=== PATIENT | female | born 1980 | race Caucasian/White ===

== ENCOUNTER 2017-07-19 14:31 | Emergency (ER) | payer OTHER ==
[~2017-07-19] VITALS: Ht 165.1 cm; Wt 74.8 kg
[~2017-07-19 14:31] MED LIST: ACET325 PO; ALBU4 PO; ALBU90OI INH; ALBU90OI6 INH; ALEN10 PO; ALEN70 PO; AMOCLA875 PO; AMOX500 PO; APRI; AZIT250 PO; AZIT500 PO; AZO; BENZ100A PO; BUPR100 PO; BUSP10; BUSP10 PO; Buspirone HCl10 MG PO; CALGLU500 PO; CEPH500 PO; CIPR250 PO; CIPR500 PO; CLON1 PO; CODGUAEL PO; CRUTCH2 MISC; CRUTCH4 USE; CYMBALTA; Cipro500 MG PO; DICL75ER PO; DOXY100 PO; DULO60 PO; ERGO400 PO; ERGO50000 PO; FLUT.05NI; GABA300 PO; HYDACE5 PO; HYDACE5325 PO; HYDR1TAB94 PO; IBUP400 PO; IBUP600 PO; IBUP800 PO; INDO50 PO; Inderal40 MG PO; KETO10 PO; Keflex500 MG PO; L-THYROXINE; LEVSOD100 PO; LEVSOD125 PO; LEVSOD150 PO; LEVSOD25 PO; LISI5 PO; MAGCIT300 PO; METCAR500 PO; METO10 PO; METO25 PO; METR500 PO; NAPR500 PO; NEURONTIN; NITR100CA PO; Naprosyn375 MG PO; Naprosyn500 MG PO; Norco 10-325 T1 EACH PO; Norco 5-325 Ta1 EACH PO; OMEP20ER PO; ONDA8 PO; OXYACE5T PO; PHENA200 PO; POTA20PAC PO; PRED20 PO; PROC10 PO; PROM25 PO; PROP10 PO; Pepcid40 MG PO; Percocet 5-3251 EACH PO; Pyridium100 MG PO; QVAR7.3 G1 IH; RISP1 PO; RISP2 PO; RXHYDACE PO; RXOXYACE PO; SERT25 PO; TRAACE PO; TRAM50 PO; TRAZ100 PO; TRAZ50 PO; Ultram50 MG PO; VENL75ER PO; VIBRID; VIBRID PO; VIIBRYD40 MG PO; VYBRID PO; Ventolin/Prove6.7 GM INH; Zithromax250 MG PO; [UNRECOGNIZED DRUG - OTHER]
[2017-07-19] MEDS ORDERED: ALBU90OI61 INH (14:43)
[2017-07-19] MEDS ORDERED: STEROID INHALER INH (14:43)
[2017-07-19] MEDS ORDERED: [UNRECOGNIZED DRUG - REMARK] PO (14:43)
[2017-07-19] MEDS ORDERED: Norco 5-325 Ta1 EACH PO (15:48)
== END 2017-07-19 15:58 | disposition home or self-care (01) ==
LOC: ER 14:31
DX: S60.221A Contusion of right hand, initial encounter (principal); I10 Essential (primary) hypertension; J44.9 Chronic obstructive pulmonary disease, unspecified; F32.9 Major depressive disorder, single episode, unspecified; F41.9 Anxiety disorder, unspecified; F17.200 Nicotine dependence, unspecified, uncomplicated; Z88.5 Allergy status to narcotic agent; Z88.2 Allergy status to sulfonamides; Z88.8 Allergy status to other drugs, medicaments and biological substances; Z79.899 Other long term (current) drug therapy; W22.8XXA Striking against or struck by other objects, initial encounter
CPT/HCPCS: 29125; 73130; 99283; L3917

== ENCOUNTER 2017-08-06 12:00 | Emergency (ER) | payer OTHER ==
[~2017-08-06] VITALS: Ht 165.1 cm; Wt 72.6 kg
[~2017-08-06 12:00] MED LIST changes: +ALBU90OI61 INH; +STEROID INHALER INH; +[UNRECOGNIZED DRUG - REMARK] PO
[2017-08-06 12:33] LABS: Source, Urine Clean Catch
[2017-08-06 12:36] LABS: Bilirubin, Urine Neg (Neg); Blood, Urine 5+ (Neg); Glucose Qualitative, Urine Neg (Neg); Ketones, Urine Neg (Neg); Leukocyte Esterase, Urine 3+ (Neg); Nitrite, Urine Neg (Neg); Protein, Urine 3+ (Neg); Specific Gravity, Urine 1.015 (1.003-1.022); Urobilinogen, Urine 1+ (Normal)
[2017-08-06 12:39] LABS: Appearance, Urine Turbid (Clear); Color, Urine Yellow (P-Yellow)
[2017-08-06 12:44] LABS: White Blood Cells, Urine TNTC /hpf (0-5)
[2017-08-06 12:45] LABS: Bacteria Few /hpf
[2017-08-06 12:47] LABS: Red Blood Cells, Urine 25-50 /hpf (0-2)
[2017-08-06 12:48] LABS: Mucus Light (0-Heavy); Squamous Epithelial Cells Many /hpf (Few)
[2017-08-06 12:59] LABS: BASOPHILS ABSOLUTE AUTO 0.04 K/mm3 (0.00-0.23); BASOPHILS PERCENT AUTO 0 % (0-2); EOSINOPHILS ABSOLUTE AUTO 0.04 K/mm3 (0.00-0.68); EOSINOPHILS PERCENT AUTO 0 % (0-6); Hematocrit 43.8 % (33.0-51.0); Hemoglobin 14.5 g/dL (11.5-16.0); IMMATURE GRAN ABSOLUTE AUTO 0.03 K/mm3 (0.00-0.10); IMMATURE GRAN PERCENT AUTO 0 % (0-1); LYMPHOCYTES ABSOLUTE AUTO 1.62 K/mm3 (0.84-5.20); LYMPHOCYTES PERCENT AUTO 15 % (21-46); MONOCYTES ABSOLUTE AUTO 0.55 K/mm3 (0.16-1.47); MONOCYTES PERCENT AUTO 5 % (4-13); Mean Corpuscular HGB Conc 33.1 g/dL (31.5-36.5); Mean Corpuscular Volume 94 fL (80-100); Mean Platelet Volume 8.8 fL (9.1-12.4); NEUTROPHILS ABSOLUTE AUTO 8.72 K/mm3 (1.96-9.15); NEUTROPHILS PERCENT AUTO 79 % (41-73); Platelet Count 275 K/mm3 (150-400); RDW Coefficient Variation 13.8 % (11.7-14.2); RDW Standard Deviation 47.7 fL (35.1-46.3); Red Blood Cell Count 4.67 M/mm3 (3.80-5.20)
[2017-08-06 13:15] LABS: Alanine Aminotransfer (ALT/SGP 19 U/L (12-78); Albumin/Globulin Ratio 0.9 (0.8-1.8); Alk Phos 90 U/L (50-136); Anion Gap 7 mmol/L (6-16); Aspartate Aminotrans (AST/SGOT 16 U/L (12-37); Bilirubin, Total 0.7 mg/dL (0.1-1.0); Blood Urea Nitrogen 13 mg/dL (8-24); Bun/Creatinine Ratio 18.4 (12.0-20.0); CO2, Blood 28 mmol/L (21-32); Calcium, Blood 9.4 mg/dL (8.5-10.1); Chloride, Blood 107 mmol/L (98-108); Creatinine, Blood 0.71 mg/dL (0.40-1.00); Globulin, Blood 4.3 g/dL (2.2-4.0); Glomerular Filtration Rate >60 (60-); Glucose, Blood 131 mg/dL (70-99); Potassium, Blood 3.6 mmol/L (3.5-5.5); Sodium, Blood 142 mmol/L (136-145); Total Protein, Blood 8.3 g/dL (6.4-8.2)
[2017-08-06] MEDS ORDERED: TRIA15CR3 TOP (14:26)
[2017-08-06] MEDS ORDERED: Pyridium200 MG PO (14:26)
[2017-08-06] MEDS ORDERED: ONDA4ODT MM (14:26)
[2017-08-06] MEDS ORDERED: Cefpodoxime Pr100 MG PO (14:26)
[2017-08-06] MEDS ORDERED: BENZ100A PO (14:26)
[2017-08-09] MEDS ORDERED: Cipro500 MG PO (12:45)
== END 2017-08-06 14:58 | disposition home or self-care (01) ==
LOC: ER 12:00
PROVIDERS: Emergency Medicine; Physician Assistant
DX: N39.0 Urinary tract infection, site not specified (principal); R05 Cough; L25.9 Unspecified contact dermatitis, unspecified cause; Z88.5 Allergy status to narcotic agent; Z88.2 Allergy status to sulfonamides; Z88.8 Allergy status to other drugs, medicaments and biological substances; Z88.6 Allergy status to analgesic agent; Z79.899 Other long term (current) drug therapy; I10 Essential (primary) hypertension; F43.10 Post-traumatic stress disorder, unspecified; J44.9 Chronic obstructive pulmonary disease, unspecified; F32.9 Major depressive disorder, single episode, unspecified; F41.9 Anxiety disorder, unspecified; F17.200 Nicotine dependence, unspecified, uncomplicated
CPT/HCPCS: 36415; 71046; 74176; 80053; 81001; 81025; 83690; 85025; 87077; 87086; 87186; 96374; 96375; 99284; J0696; J2550

== ENCOUNTER → 2017-08-14 | Outpatient (CLI) | payer OTHER ==
[~2017-08-14] MED LIST changes: +Cefpodoxime Pr100 MG PO; +ONDA4ODT MM; +Pyridium200 MG PO; +TRIA15CR3 TOP
== END ==
LOC: LAB EV 10:11 → LAB SHORT 10:11
DX: N39.0 Urinary tract infection, site not specified (principal)
CPT/HCPCS: 87077; 87086; 87186

== ENCOUNTER 2017-10-22 16:05 | Emergency (ER) | payer OTHER ==
[~2017-10-22] VITALS: Ht 165.1 cm; Wt 79.4 kg
[2017-10-22] MEDS ORDERED: DICL75ER PO (17:12)
[2017-10-22] MEDS ORDERED: Keflex500 MG PO (17:12)
[2017-10-22] MEDS ORDERED: Voltaren100 GM TOP (17:12)
[2017-10-22] MEDS ORDERED: ULTRA-LIGHT RO1 EACH UD (17:32)
== END 2017-10-22 17:20 | disposition home or self-care (01) ==
LOC: ER 16:05
DX: M25.551 Pain in right hip (principal); M25.552 Pain in left hip; G89.29 Other chronic pain; H72.91 Unspecified perforation of tympanic membrane, right ear; Z88.5 Allergy status to narcotic agent; Z88.2 Allergy status to sulfonamides; Z88.8 Allergy status to other drugs, medicaments and biological substances; Z88.6 Allergy status to analgesic agent; Z79.899 Other long term (current) drug therapy; I10 Essential (primary) hypertension; E03.9 Hypothyroidism, unspecified; J44.9 Chronic obstructive pulmonary disease, unspecified; F43.10 Post-traumatic stress disorder, unspecified; F41.9 Anxiety disorder, unspecified; F17.200 Nicotine dependence, unspecified, uncomplicated
CPT/HCPCS: 99282

== ENCOUNTER 2018-02-13 12:36 | Emergency (ER) | payer OTHER ==
[~2018-02-13] VITALS: Ht 165.1 cm; Wt 72.6 kg
[~2018-02-13 12:36] MED LIST changes: +ULTRA-LIGHT RO1 EACH UD; +Voltaren100 GM TOP
[2018-02-13] MEDS ORDERED: Augmentin 875-1 EACH PO (13:16)
[2018-02-13] MEDS ORDERED: Norco 5-325 Ta1 EACH PO (13:16)
== END 2018-02-13 13:22 | disposition home or self-care (01) ==
LOC: ER 12:36
DX: H66.92 Otitis media, unspecified, left ear (principal); J02.9 Acute pharyngitis, unspecified; Z88.5 Allergy status to narcotic agent; Z88.2 Allergy status to sulfonamides; Z88.6 Allergy status to analgesic agent; Z88.8 Allergy status to other drugs, medicaments and biological substances; Z79.899 Other long term (current) drug therapy; I10 Essential (primary) hypertension; J44.9 Chronic obstructive pulmonary disease, unspecified; F43.10 Post-traumatic stress disorder, unspecified; F41.9 Anxiety disorder, unspecified; F17.210 Nicotine dependence, cigarettes, uncomplicated
CPT/HCPCS: 99282

== ENCOUNTER 2018-04-18 16:35 | Emergency (ER) | payer OTHER ==
[~2018-04-18] VITALS: Ht 165.1 cm; Wt 73.9 kg
[~2018-04-18 16:35] MED LIST changes: +Augmentin 875-1 EACH PO
[2018-04-18] MEDS ORDERED: IBUP400 PO (17:15)
[2018-04-18 17:27] LABS: BASOPHILS ABSOLUTE AUTO 0.03 K/mm3 (0.00-0.23); BASOPHILS PERCENT AUTO 0 % (0-2); EOSINOPHILS PERCENT AUTO 1 % (0-6); Hematocrit 38.3 % (33.0-51.0); IMMATURE GRAN ABSOLUTE AUTO 0.04 K/mm3 (0.00-0.10); IMMATURE GRAN PERCENT AUTO 0 % (0-1); LYMPHOCYTES ABSOLUTE AUTO 2.44 K/mm3 (0.84-5.20); LYMPHOCYTES PERCENT AUTO 21 % (21-46); MONOCYTES ABSOLUTE AUTO 0.94 K/mm3 (0.16-1.47); MONOCYTES PERCENT AUTO 8 % (4-13); Mean Corpuscular HGB 28.8 pg (26.0-34.0); Mean Corpuscular HGB Conc 31.3 g/dL (31.5-36.5); Mean Corpuscular Volume 92 fL (80-100); NEUTROPHILS ABSOLUTE AUTO 8.01 K/mm3 (1.96-9.15); NEUTROPHILS PERCENT AUTO 69 % (41-73); Platelet Count 242 K/mm3 (150-400); RDW Coefficient Variation 14.9 % (11.7-14.2); RDW Standard Deviation 50.2 fL (35.1-46.3); Red Blood Cell Count 4.16 M/mm3 (3.80-5.20); White Blood Cell Count 11.56 K/mm3 (4.00-11.30)
[2018-04-18] MEDS ORDERED: CEPH500 PO (17:38)
[2018-04-18] MEDS ORDERED: Cleocin HCl300 MG PO (17:38)
[2018-04-18] MEDS ORDERED: Norco 5-325 Ta1 EACH PO (17:38)
[2018-04-18 18:00] LABS: Alanine Aminotransfer (ALT/SGP 17 U/L (12-78); Albumin, Blood 4.4 g/dL (3.4-5.0); Albumin/Globulin Ratio 1.2 (0.8-1.8); Alk Phos 97 U/L (50-136); Anion Gap 9 mmol/L (6-16); Aspartate Aminotrans (AST/SGOT 12 U/L (12-37); Bilirubin, Total 0.8 mg/dL (0.1-1.0); Blood Urea Nitrogen 16 mg/dL (8-24); Bun/Creatinine Ratio 19.2 (12.0-20.0); CO2, Blood 25 mmol/L (21-32); Calcium, Blood 8.8 mg/dL (8.5-10.1); Chloride, Blood 106 mmol/L (98-108); Creatinine, Blood 0.83 mg/dL (0.40-1.00); Globulin, Blood 3.8 g/dL (2.2-4.0); Glomerular Filtration Rate >60 (60-); Glucose, Blood 87 mg/dL (70-99); Potassium, Blood 3.4 mmol/L (3.5-5.5); Sodium, Blood 140 mmol/L (136-145); Total Protein, Blood 8.2 g/dL (6.4-8.2)
== END 2018-04-18 18:15 | disposition home or self-care (01) ==
LOC: ER 16:35
PROVIDERS: Emergency Medicine
DX: M27.2 Inflammatory conditions of jaws (principal); L03.211 Cellulitis of face; I10 Essential (primary) hypertension; J44.9 Chronic obstructive pulmonary disease, unspecified; F43.10 Post-traumatic stress disorder, unspecified; F32.9 Major depressive disorder, single episode, unspecified; F41.9 Anxiety disorder, unspecified; F17.210 Nicotine dependence, cigarettes, uncomplicated; Z79.899 Other long term (current) drug therapy
CPT/HCPCS: 36415; 80053; 85025; 99283

== ENCOUNTER 2018-05-13 01:30 | Emergency (ER) | payer OTHER ==
[~2018-05-13] VITALS: Ht 167.6 cm; Wt 72.6 kg
[~2018-05-13 01:30] MED LIST changes: +Cleocin HCl300 MG PO
[2018-05-13] MEDS ORDERED: ALBU2.5V5 NEB (01:41)
[2018-05-13] MEDS ORDERED: Naloxone HC1 MG/1 ML (01:42)
[2018-05-13] MEDS ORDERED: METO25ER PO (01:42)
== END 2018-05-13 02:26 | disposition home or self-care (01) ==
LOC: ER 01:30
DX: T52.0X1A Toxic effect of petroleum products, accidental (unintentional), initial encounter (principal); I10 Essential (primary) hypertension; J44.9 Chronic obstructive pulmonary disease, unspecified; F32.9 Major depressive disorder, single episode, unspecified; F41.9 Anxiety disorder, unspecified; F17.210 Nicotine dependence, cigarettes, uncomplicated; Z88.5 Allergy status to narcotic agent; Z88.2 Allergy status to sulfonamides; Z88.8 Allergy status to other drugs, medicaments and biological substances; Z79.899 Other long term (current) drug therapy
CPT/HCPCS: 94640; 99284-25

== ENCOUNTER → 2018-08-06 | Outpatient (CLI) | payer OTHER ==
[~2018-08-06] MED LIST changes: +ALBU2.5V5 NEB; +METO25ER PO; +Naloxone HC1 MG/1 ML
== END ==
LOC: LAB SHORT 17:08 → LAB 17:08
DX: Z12.4 Encounter for screening for malignant neoplasm of cervix (principal)
CPT/HCPCS: 87070; 87205

== ENCOUNTER → 2018-08-08 | Outpatient (CLI) | payer OTHER ==
[2018-08-10 15:07] LABS: HPV 16 Negative (Negative); HPV 18 Negative (Negative); HPV OTHER HR TYPES Negative (Negative)
== END ==
LOC: LAB 08-06 10:10
PROVIDERS: Nurse Practitioner Family
DX: Z12.4 Encounter for screening for malignant neoplasm of cervix (principal)
CPT/HCPCS: 87624; G0145

== ENCOUNTER 2018-11-17 17:26 | Emergency (ER) | payer OTHER ==
[~2018-11-17] VITALS: Ht 165.1 cm; Wt 81.7 kg
[2018-11-17 19:01] LABS: BASOPHILS ABSOLUTE AUTO 0.02 K/mm3 (0.00-0.23); BASOPHILS PERCENT AUTO 0 % (0-2); EOSINOPHILS ABSOLUTE AUTO 0.04 K/mm3 (0.00-0.68); EOSINOPHILS PERCENT AUTO 0 % (0-6); Hematocrit 38.6 % (33.0-51.0); Hemoglobin 12.5 g/dL (11.5-16.0); IMMATURE GRAN ABSOLUTE AUTO 0.07 K/mm3 (0.00-0.10); IMMATURE GRAN PERCENT AUTO 1 % (0-1); LYMPHOCYTES ABSOLUTE AUTO 1.67 K/mm3 (0.84-5.20); LYMPHOCYTES PERCENT AUTO 12 % (21-46); MONOCYTES ABSOLUTE AUTO 0.72 K/mm3 (0.16-1.47); MONOCYTES PERCENT AUTO 5 % (4-13); Mean Corpuscular HGB 29.6 pg (26.0-34.0); Mean Corpuscular HGB Conc 32.4 g/dL (31.5-36.5); Mean Corpuscular Volume 92 fL (80-100); Mean Platelet Volume 9.4 fL (9.1-12.4); NEUTROPHILS ABSOLUTE AUTO 11.07 K/mm3 (1.96-9.15); NEUTROPHILS PERCENT AUTO 82 % (41-73); Platelet Count 329 K/mm3 (150-400); RDW Coefficient Variation 13.5 % (11.7-14.2); RDW Standard Deviation 45.5 fL (35.1-46.3); Red Blood Cell Count 4.22 M/mm3 (3.80-5.20); White Blood Cell Count 13.59 K/mm3 (4.00-11.30)
[2018-11-17] MEDS ORDERED: LEVSOD125 PO (19:18)
[2018-11-17] MEDS ORDERED: Diclofenac Sodi50 MG (19:19)
[2018-11-17] MEDS ORDERED: LISI20 PO (19:19)
[2018-11-17 19:20] LABS: Alanine Aminotransfer (ALT/SGP 16 U/L (12-78); Albumin, Blood 3.5 g/dL (3.4-5.0); Albumin/Globulin Ratio 0.7 (0.8-1.8); Alk Phos 95 U/L (50-136); Anion Gap 8 mmol/L (6-16); Aspartate Aminotrans (AST/SGOT 12 U/L (12-37); Bilirubin, Total 0.9 mg/dL (0.1-1.0); Blood Urea Nitrogen 11 mg/dL (8-24); Bun/Creatinine Ratio 14.2 (12.0-20.0); CO2, Blood 26 mmol/L (21-32); Calcium, Blood 9.2 mg/dL (8.5-10.1); Chloride, Blood 100 mmol/L (98-108); Creatinine, Blood 0.77 mg/dL (0.40-1.00); Globulin, Blood 4.8 g/dL (2.2-4.0); Glomerular Filtration Rate >60 (60-); Glucose, Blood 100 mg/dL (70-99); Potassium, Blood 3.6 mmol/L (3.5-5.5); Sodium, Blood 134 mmol/L (136-145); Total Protein, Blood 8.3 g/dL (6.4-8.2)
[2018-11-17] MEDS ORDERED: DOXY100 PO (19:21)
[2018-11-17] MEDS ORDERED: NITR100CA PO (19:21)
[2018-11-17] MEDS ORDERED: METR500 PO (19:22)
[2018-11-17 19:48] LABS: Source, Urine Clean Catch
[2018-11-17 19:51] LABS: Blood, Urine 3+ (Neg); Glucose Qualitative, Urine Neg (Neg); Ketones, Urine 1+ (Neg); Leukocyte Esterase, Urine 3+ (Neg); Nitrite, Urine Pos (Neg); Protein, Urine 2+ (Neg); Urobilinogen, Urine 2+ (Normal)
[2018-11-17 19:59] LABS: Bilirubin, Urine 2+ (Neg)
[2018-11-17 20:00] LABS: Appearance, Urine Clear (Clear); Color, Urine Yellow (P-Yellow)
[2018-11-17 20:01] LABS: Bacteria Many /hpf; Squamous Epithelial Cells Mod /hpf (Few); White Blood Cells, Urine 25-50 /hpf (0-5)
[2018-11-17] MEDS ORDERED: Pyridium100 MG PO ×2 (20:48→21:02)
[2018-11-17] MEDS ORDERED: IBUP600 PO ×2 (20:48→21:02)
[2018-11-17] MEDS ORDERED: ONDA4ODT MM ×2 (20:48→21:02)
[2018-11-17] MEDS ORDERED: CEPH500 PO (20:48)
== END 2018-11-17 23:13 | disposition home or self-care (01) ==
LOC: ER 17:26
PROVIDERS: Emergency Medicine
DX: N12 Tubulo-interstitial nephritis, not specified as acute or chronic (principal); E03.9 Hypothyroidism, unspecified; F32.9 Major depressive disorder, single episode, unspecified; F41.9 Anxiety disorder, unspecified; I10 Essential (primary) hypertension; M19.90 Unspecified osteoarthritis, unspecified site; M79.7 Fibromyalgia; J44.9 Chronic obstructive pulmonary disease, unspecified; F17.210 Nicotine dependence, cigarettes, uncomplicated; Z88.2 Allergy status to sulfonamides; Z88.5 Allergy status to narcotic agent; Z88.8 Allergy status to other drugs, medicaments and biological substances; Z79.899 Other long term (current) drug therapy
CPT/HCPCS: 74176; 80053; 81001; 81025; 85025; 87077; 87086; 87147; 87186; 93005; 93010; 96361; 96365; 96375; 96376; 99284-25; A9270; J0696; J2405; J3010; J7030

== ENCOUNTER → 2019-02-10 | Outpatient (CLI) | payer OTHER ==
[~2019-02-10] MED LIST changes: +ACYC800 PO; +Diclofenac Sodi50 MG; +LISI20 PO; +METO100ER PO; -METO25ER PO; +Minipress2 MG PO; +OMEPRAZOLE20 MG PO; +ZESTORETIC 20-1 EACH PO
[2019-02-10 17:50] LABS: Bilirubin, Urine Neg (Neg); Blood, Urine Neg (Neg); Glucose Qualitative, Urine Neg (Neg); Ketones, Urine Neg (Neg); Leukocyte Esterase, Urine Neg (Neg); Nitrite, Urine Neg (Neg); Protein, Urine Neg (Neg); Urobilinogen, Urine NORM (Normal)
[2019-02-10 18:10] LABS: Appearance, Urine Clear (Clear); Color, Urine Yellow (P-Yellow)
== END ==
LOC: LAB SHORT 16:20 → LAB 16:20
PROVIDERS: Nurse Practitioner Family
DX: R10.9 Unspecified abdominal pain (principal)
CPT/HCPCS: 81003

== ENCOUNTER 2019-02-15 01:18 | Observation (INO) | payer OTHER ==
[~2019-02-15] VITALS: Ht 165.1 cm; Wt 85.7 kg
[~2019-02-15 01:18] MED LIST changes: -ACYC800 PO; -Minipress2 MG PO; -OMEPRAZOLE20 MG PO; -ZESTORETIC 20-1 EACH PO
[2019-02-15] MEDS ORDERED: OMEPRAZOLE20 MG PO (02:41)
[2019-02-15] MEDS ORDERED: ACYC800 PO (02:41)
[2019-02-15] MEDS ORDERED: Percocet 5-3251 EACH PO (02:42)
[2019-02-15] MEDS ORDERED: Minipress2 MG PO (02:42)
[2019-02-15] MEDS ORDERED: ZESTORETIC 20-1 EACH PO (02:44)
[2019-02-15 03:02] LABS: BASOPHILS ABSOLUTE AUTO 0.03 K/mm3 (0.00-0.23); BASOPHILS PERCENT AUTO 0 % (0-2); EOSINOPHILS ABSOLUTE AUTO 0.06 K/mm3 (0.00-0.68); EOSINOPHILS PERCENT AUTO 1 % (0-6); Hematocrit 34.5 % (33.0-51.0); Hemoglobin 10.8 g/dL (11.5-16.0); IMMATURE GRAN ABSOLUTE AUTO 0.02 K/mm3 (0.00-0.10); IMMATURE GRAN PERCENT AUTO 0 % (0-1); LYMPHOCYTES ABSOLUTE AUTO 2.33 K/mm3 (0.84-5.20); LYMPHOCYTES PERCENT AUTO 30 % (21-46); MONOCYTES PERCENT AUTO 8 % (4-13); Mean Corpuscular HGB 28.5 pg (26.0-34.0); Mean Corpuscular HGB Conc 31.3 g/dL (31.5-36.5); Mean Corpuscular Volume 91 fL (80-100); Mean Platelet Volume 9.1 fL (9.1-12.4); NEUTROPHILS ABSOLUTE AUTO 4.77 K/mm3 (1.96-9.15); NEUTROPHILS PERCENT AUTO 61 % (41-73); Platelet Count 200 K/mm3 (150-400); RDW Coefficient Variation 15.5 % (11.7-14.2); RDW Standard Deviation 51.1 fL (35.1-46.3); Red Blood Cell Count 3.79 M/mm3 (3.80-5.20); White Blood Cell Count 7.81 K/mm3 (4.00-11.30)
[2019-02-15 03:21] LABS: Alanine Aminotransfer (ALT/SGP 16 U/L (12-78); Albumin, Blood 3.2 g/dL (3.4-5.0); Albumin/Globulin Ratio 0.9 (0.8-1.8); Alk Phos 81 U/L (50-136); Anion Gap 7 mmol/L (6-16); Aspartate Aminotrans (AST/SGOT 14 U/L (12-37); Bilirubin, Total <0.1 mg/dL (0.1-1.0); Blood Urea Nitrogen 20 mg/dL (8-24); Bun/Creatinine Ratio 21.2 (12.0-20.0); CO2, Blood 24 mmol/L (21-32); Chloride, Blood 105 mmol/L (98-108); Creatinine, Blood 0.95 mg/dL (0.40-1.00); Globulin, Blood 3.4 g/dL (2.2-4.0); Glomerular Filtration Rate >60 (60-); Glucose, Blood 88 mg/dL (70-99); Potassium, Blood 3.7 mmol/L (3.5-5.5); Sodium, Blood 136 mmol/L (136-145); Total Protein, Blood 6.6 g/dL (6.4-8.2)
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
--- NOTE | 2019-02-15 10:09 | NUR ---
NOTIFIED B.P. 96/59 HEART RATE 69 AND TAKES METOPROLOL, ORETIC AND LISINOPRIL. SHE WILL PUT ORDERS IN
--- NOTE | 2019-02-15 12:00 | NUR ---
LEFT MESSAGE ON VOICE MAIL ABOUT POSSIBLY ORDERING LEG XRAY. AWAITING FURTHER ORDERS
--- NOTE | 2019-02-15 13:26 | NUR ---
SLEEPING. APPEARS COMFORTABLE
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
[2019-02-16 04:50] LABS: Hematocrit 35.8 % (33.0-51.0); Hemoglobin 11.2 g/dL (11.5-16.0); Mean Corpuscular HGB Conc 31.3 g/dL (31.5-36.5); Mean Corpuscular Volume 90 fL (80-100); Platelet Count 187 K/mm3 (150-400); RDW Coefficient Variation 15.6 % (11.7-14.2); RDW Standard Deviation 51.6 fL (35.1-46.3); White Blood Cell Count 5.53 K/mm3 (4.00-11.30)
[2019-02-16 05:14] LABS: Alanine Aminotransfer (ALT/SGP 17 U/L (12-78); Albumin, Blood 2.8 g/dL (3.4-5.0); Albumin/Globulin Ratio 0.9 (0.8-1.8); Alk Phos 69 U/L (50-136); Anion Gap 4 mmol/L (6-16); Aspartate Aminotrans (AST/SGOT 16 U/L (12-37); Bilirubin, Total 0.2 mg/dL (0.1-1.0); Blood Urea Nitrogen 12 mg/dL (8-24); Bun/Creatinine Ratio 14.1 (12.0-20.0); CO2, Blood 27 mmol/L (21-32); Calcium, Blood 8.1 mg/dL (8.5-10.1); Chloride, Blood 109 mmol/L (98-108); Creatinine, Blood 0.85 mg/dL (0.40-1.00); Globulin, Blood 3.2 g/dL (2.2-4.0); Glomerular Filtration Rate >60 (60-); Glucose, Blood 96 mg/dL (70-99); Potassium, Blood 4.1 mmol/L (3.5-5.5); Sodium, Blood 140 mmol/L (136-145)
--- NOTE | 2019-02-16 05:56 | NUR ---
SHIFT SUMMARY NO ASSESSMENT CHANGES. R AC IS SL. TOLERATING DIET WELL. XRAY OF L KNEE (-). 25MCG OF FENT @ 2049. PERCOCET @ 0500. PLAN TO DC TODAY.
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
--- NOTE | 2019-02-16 09:58 | NUR ---
SPOKE WITH MAURICIO WATSON RN [facility] COMPUTER PROCESSING SCHEDULER AND SHE WILL BRING A CELL PHONE TO PATIENTS ROOM THIS MORNING PRIOR TO DISCHARGE. MYSELF AND ROMEL NAGY, MUSHROOM PICKER, SPOKE WITH PATIENT AND PATIENT PLANS TO DISCHARGE HOME WITH HER MOTHER AND WILL WAIT FOR AN AVAILABLE BED AT [facility] OR WILL GO TO [facility]. PER PATIENT SHE SPOKE VIA TELEPHONE WITH HER MOTHER AND WAS TOLD BY HER MOTHER THEY WOULD DISCUSS PATIENT STAYING SHORT TERM WITH HER MOTHER AFTER THEY GET TO HER MOTHERS HOUSE. PATIENT STATES SHE IS AGREEABLE TO THIS DISCHARGE PLAN
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
[2019-02-16] MEDS ORDERED: DOC250 PO (11:37)
[2019-02-16] MEDS ORDERED: ZESTORETIC 20-1 EACH PO (11:58)
[2019-02-16] MEDS ORDERED: METO100ER PO (11:59)
--- NOTE | 2019-02-16 14:32 | NUR ---
1130 [facility] HERE TO SPEAK WITH PATIENT. PATIENT PLANS TO DISCHARGE HOME TODAY WITH HER MOTHER. PATIENT WOULD LIKE TO SCHEDULE HER OWN APPT TIME WITH HER PCP IRA ANN.
--- NOTE | 2019-02-16 14:35 | NUR ---
5621 DISCHARGE REVIEWED DISCHARGE INSTRUCTIONS WITH PATIENT AND HER MOTHER. PATIENT TEARFUL AT TIMES BUT STATES SHE FEELS READY TO DISCHARGEHOME. PATIENT DISCHARGED TO HOME WITH HER MOTHER
== END 2019-02-16 14:25 | disposition home or self-care (01) ==
LOC: ER 01:18 → MEDS 04:22 → ENPENDDIS 02-16 10:59 → MEDS 02-16 14:25
PROVIDERS: Emergency Medicine; ADMIT Internal Medicine
DX: S02.651A Fracture of angle of right mandible, initial encounter for closed fracture (principal); S02.631A Fracture of coronoid process of right mandible, initial encounter for closed fracture; S02.69XA Fracture of mandible of other specified site, initial encounter for closed fracture; M25.562 Pain in left knee; E03.9 Hypothyroidism, unspecified; F17.210 Nicotine dependence, cigarettes, uncomplicated; J44.9 Chronic obstructive pulmonary disease, unspecified; I10 Essential (primary) hypertension; K21.9 Gastro-esophageal reflux disease without esophagitis; M79.7 Fibromyalgia; F43.10 Post-traumatic stress disorder, unspecified; Z86.69 Personal history of other diseases of the nervous system and sense organs; Z79.899 Other long term (current) drug therapy; Z88.2 Allergy status to sulfonamides; Z88.5 Allergy status to narcotic agent; Z88.8 Allergy status to other drugs, medicaments and biological substances; Y04.0XXA Assault by unarmed brawl or fight, initial encounter
CPT/HCPCS: 36415; 70450; 70486; 71260; 72125; 73560-LT; 74177; 80053; 85025; 85027; 96374-59; 96375-59; 96376-59; 97116; 97162; 97165; 97530; 99285-25; A9270; J2060; J2405; J3010; J7030; Q9967

== ENCOUNTER 2019-04-15 09:17 | Day surgery (SDC) | payer OTHER ==
[~2019-04-15] VITALS: Ht 165.1 cm; Wt 93.9 kg
[~2019-04-15 09:17] MED LIST changes: +ACYC800 PO; +DOC250 PO; +Minipress2 MG PO; +OMEPRAZOLE20 MG PO; +ZESTORETIC 20-1 EACH PO
[2019-04-15] MEDS ORDERED: HYDHCL25 PO (09:59)
--- NOTE | 2019-04-15 11:05 | NUR ---
04/15/19 1105 Haley Santos ABDOMEN PREPPED BY [facility].VÍCTORG.
--- NOTE | 2019-04-15 12:33 | NUR ---
04/15/19 1233 Daiana Ivy ORAL PAIN MEDS GIVEN ORDERED
== END 2019-04-15 13:28 | disposition home or self-care (01) ==
LOC: ORSCSDS 09:17
PROVIDERS: Obstetrics & Gynecology
PROC: 0UJH4ZZ Inspection of Vagina and Cul-de-sac, Percutaneous Endoscopic Approach (ICD-10-PCS; principal; 2019-04-15 10:30)
DX: N92.1 Excessive and frequent menstruation with irregular cycle (principal); N94.6 Dysmenorrhea, unspecified; N94.10 Unspecified dyspareunia; R10.2 Pelvic and perineal pain; N80.3 Endometriosis of pelvic peritoneum; I10 Essential (primary) hypertension; J44.9 Chronic obstructive pulmonary disease, unspecified; F17.210 Nicotine dependence, cigarettes, uncomplicated; E03.9 Hypothyroidism, unspecified; G40.909 Epilepsy, unspecified, not intractable, without status epilepticus; Z79.899 Other long term (current) drug therapy; E66.9 Obesity, unspecified; Z68.34 Body mass index [BMI] 34.0-34.9, adult
CPT/HCPCS: J0171; J1100; J2250; J2405; J2704; J2710; J3010; J7120

== ENCOUNTER → 2020-01-09 | Outpatient (CLI) | payer OTHER ==
[~2020-01-09] MED LIST changes: +HYDHCL25 PO
== END | disposition home or self-care (01) ==
LOC: LAB SHORT 15:12 → PLD 15:12
DX: R22.1 Localized swelling, mass and lump, neck (principal)
CPT/HCPCS: 88173

== ENCOUNTER → 2020-10-25 | Outpatient (CLI) | payer OTHER ==
[2020-10-28 13:10] LABS: CHLAMYDIA BY NAA Negative (Negative); GONOCOCCUS BY NAA Negative (Negative)
[2020-10-29 13:47] LABS: TRICH VAG BY NAA Positive (Negative)
== END | disposition home or self-care (01) ==
LOC: LAB 19:33 → LAB SHORT 19:33
PROVIDERS: Physician Assistant
DX: Z20.9 Contact with and (suspected) exposure to unspecified communicable disease (principal)
CPT/HCPCS: 87086; 87491; 87591; 87661

== ENCOUNTER 2022-11-21 03:33 | Emergency (ER) | payer OTHER ==
[~2022-11-21] VITALS: Ht 165.1 cm; Wt 79.4 kg
[2022-11-21 03:43] VITALS: BP 154/70
[2022-11-21] MEDS ORDERED: PANTOPRAZOLE SO40 M2 PO (03:45)
[2022-11-21] MEDS ORDERED: BUPROPION XL150 M1 PO (03:45)
[2022-11-21] MEDS ORDERED: CEPH500 PO (04:01)
== END 2022-11-21 04:03 | disposition home or self-care (01) ==
LOC: ER 03:33
DX: S61.412A Laceration without foreign body of left hand, initial encounter (principal); L02.416 Cutaneous abscess of left lower limb; I10 Essential (primary) hypertension; J44.9 Chronic obstructive pulmonary disease, unspecified; E03.9 Hypothyroidism, unspecified; F17.210 Nicotine dependence, cigarettes, uncomplicated; Z88.5 Allergy status to narcotic agent; Z88.2 Allergy status to sulfonamides; Z88.8 Allergy status to other drugs, medicaments and biological substances; Z88.6 Allergy status to analgesic agent; Z79.899 Other long term (current) drug therapy; W01.198A Fall on same level from slipping, tripping and stumbling with subsequent striking against other object, initial encounter
CPT/HCPCS: 12001; 99283-25; A9270

== ENCOUNTER 2023-02-11 06:27 | Day surgery (SDC) | payer OTHER ==
[~2023-02-11] VITALS: Ht 165.1 cm; Wt 87.4 kg
[~2023-02-11 06:27] MED LIST changes: +BUPROPION XL150 M1 PO; +PANTOPRAZOLE SO40 M2 PO
[2023-02-11] MEDS ORDERED: ALBU2.5V5 ×2 (07:08→07:12)
--- NOTE | 2023-02-11 08:52 | NUR ---
02/11/23 0852 Glenny Rivera USED FOR GELFOAM PACKING ONLY.
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
[2023-02-11 12:04] VITALS: BP 143/102
== END 2023-02-11 12:40 | disposition home or self-care (01) ==
LOC: ORSCSDS 06:27
PROVIDERS: Otolaryngology
PROC: 0NR607Z Replacement of Left Temporal Bone with Autologous Tissue Substitute, Open Approach (ICD-10-PCS; principal; 2023-02-11 07:30)
PROC: 09Q Ear, Nose, Sinus, Repair (ICD-10-PCS; principal; 2023-02-11 07:30)
DX: H71.92 Unspecified cholesteatoma, left ear (principal); I10 Essential (primary) hypertension; J44.9 Chronic obstructive pulmonary disease, unspecified; F17.210 Nicotine dependence, cigarettes, uncomplicated; E03.9 Hypothyroidism, unspecified; Z79.899 Other long term (current) drug therapy
CPT/HCPCS: A9270; J0171; J1100; J2250; J2405; J2704; J3010; J3301; J7120

== ENCOUNTER 2023-06-22 07:24 | Day surgery (SDC) | payer OTHER ==
[~2023-06-22] VITALS: Ht 165.1 cm; Wt 90.0 kg
[~2023-06-22 07:24] MED LIST changes: +ALBU2.5V5; +Lactated Ringer's 1,000 ML IV ONE
[2023-06-22] MEDS ORDERED: Lactated Ringer's 1,000 ML IV ONE (08:31)
--- NOTE | 2023-06-22 09:30 | NUR ---
06/22/23 0930 Urvashi Gipson RN CONSULTED WITH ABOUT PATIENT DRINKING 2-3 OZ OF BLACK COFFEE AT 0755. MADE THE DESICION TO DELAY SURGERY FOR 2 HOURS. PT IN BED WITH TWO OF HER FRIENDS AT BEDSIDE. CALL LIGHT WITHIN REACH.
[2023-06-22] MEDS ORDERED: EPINEPhrine HCl 1 MG / ML 30ML Vial ONE (10:07)
[2023-06-22] MEDS ORDERED: propofoL 0 ML IV ONE (11:24)
[2023-06-22] MEDS ORDERED: Lidocaine HCl 4% 5 ML SDA ONE (13:18)
[2023-06-22] MEDS ORDERED: Ondansetron HCl 2 MG / ML 2ML Vial ONE ×2 (13:21→15:00)
[2023-06-22] MEDS ORDERED: Dexamethasone Sod Phos 10 MG/ML 1ML VIAL ONE (13:21)
[2023-06-22] MEDS ORDERED: Phenylephrine HCl 100 MCG/ML-NS 10MLSYR (1MG/10ML) ONE (13:21)
[2023-06-22] MEDS ORDERED: Rocuronium Bromide 10 MG/ML 5ML Injection IV ONE (13:21)
[2023-06-22] MEDS ORDERED: Midazolam HCl 1MG / ML 2ML Vial ONE (13:22)
[2023-06-22] MEDS ORDERED: FentaNYL Citrate 50 MCG/ML 2 ML Injection ONE ×3 (13:22→15:59)
[2023-06-22] MEDS ORDERED: propofoL 20 ML IV ONE (13:22)
[2023-06-22] MEDS ORDERED: Lidocaine 1%-Epineph 1:200000 30 ML SDV INJ ONE (13:25)
--- NOTE | 2023-06-22 13:51 | NUR ---
06/22/23 1351 Giselle Alfred LIDOCAINE 2% 1:100,000 5MLS DILUTED W/ NACL 5MLS TO MAKE LIDOCAINE 1% 1:200,000 FOR INJECTION AT OPSITE BY ANDREAS
[2023-06-22] MEDS ORDERED: OxyCODONE HCL 5 MG TAB ONE (16:13)
[2023-06-22 16:20] VITALS: BP 134/99
== END 2023-06-22 16:37 | disposition home or self-care (01) ==
LOC: ORSCSDS 07:24
PROVIDERS: Otolaryngology
PROC: 097F8ZZ Dilation of Right Eustachian Tube, Via Natural or Artificial Opening Endoscopic (ICD-10-PCS; principal; 2023-06-22 09:00)
PROC: 09SM0ZZ Reposition Nasal Septum, Open Approach (ICD-10-PCS; principal; 2023-06-22 09:00)
PROC: 097G8ZZ Dilation of Left Eustachian Tube, Via Natural or Artificial Opening Endoscopic (ICD-10-PCS; principal; 2023-06-22 09:00)
DX: J34.2 Deviated nasal septum (principal); J34.3 Hypertrophy of nasal turbinates; H71.92 Unspecified cholesteatoma, left ear; H69.93 Unspecified Eustachian tube disorder, bilateral; I10 Essential (primary) hypertension; J44.9 Chronic obstructive pulmonary disease, unspecified; F17.210 Nicotine dependence, cigarettes, uncomplicated; E03.9 Hypothyroidism, unspecified; Z79.899 Other long term (current) drug therapy; Q78.0 Osteogenesis imperfecta
CPT/HCPCS: A9270; J0171; J1100; J2001; J2250; J2371; J2405; J2704; J3010; J7120

== ENCOUNTER 2023-09-27 09:25 | Emergency (ER) | payer OTHER ==
[~2023-09-27] VITALS: Ht 162.6 cm; Wt 83.9 kg
[~2023-09-27 09:25] MED LIST changes: -Lactated Ringer's 1,000 ML IV ONE
[2023-09-27 10:08] VITALS: BP 137/101
[2023-09-27 10:51] LABS: BASOPHILS ABSOLUTE AUTO 0.04 K/mm3 (0.00-0.23); BASOPHILS PERCENT AUTO 1 % (0-2); EOSINOPHILS ABSOLUTE AUTO 0.13 K/mm3 (0.00-0.68); EOSINOPHILS PERCENT AUTO 2 % (0-6); Hematocrit 31.7 % (33.0-51.0); Hemoglobin 9.4 g/dL (11.5-16.0); IMMATURE GRAN ABSOLUTE AUTO 0.01 K/mm3 (0.00-0.10); IMMATURE GRAN PERCENT AUTO 0 % (0-1); LYMPHOCYTES ABSOLUTE AUTO 1.69 K/mm3 (0.84-5.20); LYMPHOCYTES PERCENT AUTO 29 % (21-46); MONOCYTES ABSOLUTE AUTO 0.53 K/mm3 (0.16-1.47); MONOCYTES PERCENT AUTO 9 % (4-13); Mean Corpuscular HGB Conc 29.7 g/dL (31.5-36.5); Mean Corpuscular Volume 78 fL (80-100); Mean Platelet Volume 8.7 fL (9.1-12.4); NEUTROPHILS ABSOLUTE AUTO 3.46 K/mm3 (1.96-9.15); NEUTROPHILS PERCENT AUTO 59 % (41-73); Platelet Count 290 K/mm3 (150-400); RDW Coefficient Variation 17.1 % (11.7-14.2); Red Blood Cell Count 4.08 M/mm3 (3.80-5.20); White Blood Cell Count 5.86 K/mm3 (4.00-11.30)
[2023-09-27 11:20] LABS: Albumin, Blood 3.4 g/dL (3.4-5.0); Albumin/Globulin Ratio 0.9 (0.8-1.8); Bilirubin, Total 0.3 mg/dL (0.1-1.0); Bun/Creatinine Ratio 18.7 (12.0-20.0); Creatinine, Blood 0.75 mg/dL (0.40-1.00); Globulin, Blood 3.6 g/dL (2.2-4.0); Potassium, Blood 3.5 mmol/L (3.5-5.5)
[2023-09-27] MEDS ORDERED: [UNRECOGNIZED DRUG - OTHER] PO (13:22)
[2023-09-27] MEDS ORDERED: OXYC5 PO (13:22)
[2023-09-27] MEDS ORDERED: HYDCHL25 PO (13:22)
[2023-09-27] MEDS ORDERED: Synthroid/Levo0.2 MG (13:23)
[2023-09-27] MEDS ORDERED: FERROUS SULFAT325 M3 PO (13:23)
== END 2023-09-27 13:27 | disposition home or self-care (01) ==
LOC: ER 09:25
PROVIDERS: Student in an Organized Health Care Education/Training Program
DX: R07.81 Pleurodynia (principal); M79.602 Pain in left arm; M25.562 Pain in left knee; M79.672 Pain in left foot; M54.2 Cervicalgia; J44.89 Other specified chronic obstructive pulmonary disease; E03.9 Hypothyroidism, unspecified; I10 Essential (primary) hypertension; F43.10 Post-traumatic stress disorder, unspecified; F17.210 Nicotine dependence, cigarettes, uncomplicated; V28.59XA Other motorcycle passenger injured in noncollision transport accident in traffic accident, initial encounter; Y92.411 Interstate highway as the place of occurrence of the external cause; Z79.899 Other long term (current) drug therapy; Z88.5 Allergy status to narcotic agent; Z88.2 Allergy status to sulfonamides
CPT/HCPCS: 70450; 71260; 72125; 73090; 73120; 73590; 73620; 74177; 80053; 85025; 93005; 93010; 99285-25; Q9967

== ENCOUNTER 2024-05-08 19:58 | Emergency (ER) | payer OTHER ==
[~2024-05-08] VITALS: Ht 167.6 cm; Wt 90.7 kg
[~2024-05-08 19:58] MED LIST changes: +FERROUS SULFAT325 M3 PO; +HYDCHL25 PO; +OXYC5 PO; +Synthroid/Levo0.2 MG; +[UNRECOGNIZED DRUG - OTHER] PO
[2024-05-08 20:06] VITALS: BP 176/122
[2024-05-08] MEDS ORDERED: Ibuprofen 600 MG Tab PO ONE (22:05)
== END 2024-05-08 22:18 | disposition home or self-care (01) ==
LOC: ER 19:58
DX: S63.610A Unspecified sprain of right index finger, initial encounter (principal); S63.614A Unspecified sprain of right ring finger, initial encounter; M25.552 Pain in left hip; G89.29 Other chronic pain; J44.89 Other specified chronic obstructive pulmonary disease; E03.9 Hypothyroidism, unspecified; I10 Essential (primary) hypertension; F43.10 Post-traumatic stress disorder, unspecified; F17.210 Nicotine dependence, cigarettes, uncomplicated; W01.0XXA Fall on same level from slipping, tripping and stumbling without subsequent striking against object, initial encounter; Z79.899 Other long term (current) drug therapy; Z88.2 Allergy status to sulfonamides; Z88.6 Allergy status to analgesic agent; Z88.5 Allergy status to narcotic agent; Z88.8 Allergy status to other drugs, medicaments and biological substances
CPT/HCPCS: 73130; 73502; 99283-25